=== PATIENT | female | born 1990 | race Caucasian/White ===

== ENCOUNTER 2019-01-11 18:46 | Emergency (ER) | payer MEDICAID ==
[~2019-01-11] VITALS: Ht 160 cm; Wt 48.1 kg
[2019-01-11 19:08] VITALS: BP 139/98
[2019-01-11 19:15] LABS: BASOPHILS % (AUTO) 0.9 % (0.0-2.0); EOSINOPHILS % (AUTO) 0.5 % (0.0-3.0); HEMATOCRIT 36.9 % (37.0-47.0); HEMOGLOBIN 12.6 G/DL (12.0-16.0); LYMPHOCYTES % (AUTO) 25.7 % (20.0-45.0); MEAN CORPUSCULAR VOLUME 97 FL (80-99); MONOCYTES % (AUTO) 11.4 % (1.0-10.0); NEUTROPHILS % (AUTO) 61.6 % (45.0-75.0); PLATELET COUNT 226 K/UL (150-450); RED BLOOD COUNT 3.81 M/UL (4.20-5.40); RED CELL DISTRIBUTION WIDTH 11.8 % (11.6-14.8); WHITE BLOOD COUNT 8.5 K/UL (4.8-10.8)
[2019-01-11 19:16] LABS: BILIRUBIN, URINE NEGATIVE (NEGATIVE); COLOR,URINE PALE YELLOW; GLUCOSE, URINE (UA) 4+ (NEGATIVE); KETONES,URINE NEGATIVE (NEGATIVE); LEUKOCYTE ESTERASE ,URINE NEGATIVE (NEGATIVE); NITRITE,URINE NEGATIVE (NEGATIVE); PH,URINE 6 (4.5-8.0); PROTEIN,URINE NEGATIVE (NEGATIVE); UROBILINOGEN,URINE NORMAL MG/DL (0.0-1.0)
[2019-01-11 19:17] LABS: APPEARANCE,URINE SLIGHTLY CLOUDY
[2019-01-11 19:26] LABS: ANION GAP 13 mmol/L (5-15); BLOOD UREA NITROGEN 8 mg/dL (7-18); CALCIUM 9.7 MG/DL (8.5-10.1); CARBON DIOXIDE 26 MMOL/L (21-32); CHLORIDE 100 MMOL/L (98-107); SODIUM 139 MMOL/L (136-145)
[2019-01-11 19:30] LABS: ALANINE AMINOTRANSFERASE 21 U/L (12-78); ALBUMIN 4.1 G/DL (3.4-5.0); ALBUMIN/GLOBULIN RATIO 1.2 (1.0-2.7); ALKALINE PHOSPHATASE 50 U/L (46-116); ASPARTATE AMINO TRANSFERASE 18 U/L (15-37); BILIRUBIN,TOTAL 0.4 MG/DL (0.2-1.0)
--- NOTE | 2019-01-11 19:41 | Emergency Room Report ---
History of Present Illness General Chief Complaint: Behavioral Complaint Source: EMS (Na Story) Present Illness HPI 28-year-old female brought in by EMS for suicidal ideations and possible suicide attempt. Patient states that she cut her left wrist and attempt to kill herself and began wrapping slightly she would "bleed out". 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 She states she is supposed to be taking gabapentin in the past has been on a variety of psych medications including Seroquel. She sees a doctor N[place] in [place] who manages her psychiatric disorder through the [facility]. The patient states that her family is in [place] and that she has an ex- in [place] who has guardianship over their son. She states that her daughter is property of the state now and that the patient has been homeless and has used a variety of drugs including marijuana, heroin, and methamphetamine. She states her last methamphetamine and heroin use was over a month ago. Patient states that she is very sad and depressed and continues to have thoughts of killing herself through a variety of methods such as slitting her wrists, overdosing on pills, or jumping off a bridge. (Na Story) Allergies: Coded Allergies: CLONAZEPAM (Verified Allergy, Unknown, 01/11/19) Patient History Last Menstrual Period: 12/16/18 Now: No - IUD : 4 Para: 2 Reviewed Nursing Documentation: PMH: Agreed; PSxH: Agreed (Na Story) Social History Narrative discharged from [facility]. 10 yo son and 2 yo daughter with their father in [place] (Peterson Hooker MD) Nursing Documentation-PMH History Of Psychiatric Problem: Yes - ANXIETY, DEPRESSION (Na Story) Review of Systems All Other Systems: negative except mentioned in HPI (Na Story) Physical Exam Vital Signs Date Time Temp Pulse Resp B/P (MAP) Pulse Ox O2 Delivery O2 Flow Rate FiO2 01/11/19 18:36 98.4 132 18 139/98 98 Room Air Sp02 EP Interpretation: reviewed, normal General Appearance: no apparent distress, alert, GCS 15, non-toxic Head: normocephalic, atraumatic Eyes: bilateral eye normal inspection, bilateral eye PERRL, bilateral eye EOMI ENT: hearing grossly normal, normal pharynx, no angioedema, normal voice Neck: full range of motion, supple/symm/no masses Respiratory: chest non-tender, lungs clear, normal breath sounds, speaking full sentences Cardiovascular #1: regular rate, rhythm, no edema Musculoskeletal: normal range of motion Neurologic: alert, oriented x3, responsive, 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, motor strength/tone normal, sensory intact, speech normal Psychiatric: memory normal, depressed affect, anxious, other - auditory haullucinations Skin: normal color, no rash, warm/dry, well hydrated, laceration - 3 linear lacerations ranging from 14cm and 12 cm left forearm (Na Story) Procedures Laceration/Wound Repair Laceration/Wound Repair : Consent: Verbal Wound Location: upper extremity Wound's Depth, Shape: superficial Wound Length (cm): 7 - 4+2+1 Wound Explored: clean Betadine Prep?: Yes Anesthesia: Lidocaine w/ Epi Volume Anesthetic (ccs): 10 Wound Debrided: none Wound Repaired With: sutures Suture Size/Type: 5:0 Layer Closure?: No Sterile Dressing Applied?: Yes Sling Applied?: No Patient Tolerated: Well Complications: None (Peterson Hooker MD) Medical Decision Making PA Attestation Dr. Peres is my supervising physician with whom patient management has been discussed with. Behavioral: Schizophrenia, Bipolar Disorder, Depression, PTSD (Na Story) Diagnostic Impression: Primary Impression: Unsuccessful suicide attempt Qualified Codes: X83.8XXA - Intentional self-harm by other specified means, initial encounter Additional Impressions: Major depression with psychotic features Laceration of left wrist Qualified Codes: S61.512A - Laceration without foreign body of left wrist, initial encounter Hypokalemia ER Course 28-year-old female presents for attempted suicide brought in by EMS. On exam she has 3 lacerations to her left forearm that are in the linear and runs perpendicular to the vessels in the arm. She is sad and tearful and states that she would like to harm herself by either overdosing on pills, "bleeding out ", or jumping off a building. States that she has had previous suicide attempts. Patient here is here asking for help and states that she was supposed to have a follow-up appointment with a psychiatrist in a week but knew that she would not be able to make it to them which is why she called 911 to help her. Her lacerations on her left forearm are very superficial do not require any intervention at this time. The patient had some hypokalemia and was given 40 mEq potassium and is otherwise medically cleared. The patient is placed on a 5150 hold and was given 100 mg of Seroquel as she has had this medication in the past. Report was given to Dr. Hooker who assumed care of the patient at the end of my shift. (Na Story) ER Course Please see above note. Patient examined by me. Sutures indicated. Will also order gabapentin. - cancelled as patient given Seroquel. She reports being hospitalized twice last week for psych reasons. Also needed potassium replacement. On meds for tachycardia also. Patient is medically cleared for psychiatric evaluation. Calling [facility] for possible transfer. Tachy on EKG 103. Will give LR bolus then hydration. Patient no longer tachycardic. Accepted at [facility]. Laboratory Tests Test 01/11/19 18:18 White Blood Count 8.5 K/UL (4.8-10.8) Red Blood Count 3.81 M/UL (4.20-5.40) L Hemoglobin 12.6 G/DL (12.0-16.0) Hematocrit 36.9 % (37.0-47.0) L Mean Corpuscular Volume 97 FL (80-99) Mean Corpuscular Hemoglobin 33.1 PG (27.0-31.0) H Mean Corpuscular Hemoglobin Concent 34.2 G/DL (32.0-36.0) Red Cell Distribution Width 11.8 % (11.6-14.8) Platelet Count 226 K/UL (150-450) Mean Platelet Volume 5.9 FL (6.5-10.1) L Neutrophils (%) (Auto) 61.6 % (45.0-75.0) Lymphocytes (%) (Auto) 25.7 % (20.0-45.0) Monocytes (%) (Auto) 11.4 % (1.0-10.0) H Eosinophils (%) (Auto) 0.5 % (0.0-3.0) Basophils (%) (Auto) 0.9 % (0.0-2.0) Urine Color Pale yellow Urine Appearance Slightly cloudy Urine pH 6 (4.5-8.0) Urine Specific Datil 1.005 (1.005-1.035) Urine Protein Negative (NEGATIVE) Urine Glucose (UA) 4+ (NEGATIVE) H Urine Ketones Negative (NEGATIVE) Urine Blood Negative (NEGATIVE) Urine Nitrite Negative (NEGATIVE) Urine Bilirubin Negative (NEGATIVE) Urine Urobilinogen Normal MG/DL (0.0-1.0) Urine Leukocyte Esterase Negative (NEGATIVE) Urine RBC 0 /HPF (0 - 2) Urine WBC 0-2 /HPF (0 - 2) Urine Squamous Epithelial Cells Few /LPF (NONE/OCC) Urine Bacteria Few /HPF (NONE) Urine HCG, Qualitative Negative (NEGATIVE) Sodium Level 139 MMOL/L (136-145) Potassium Level 3.0 MMOL/L (3.5-5.1) L Chloride Level 100 MMOL/L (98-107) Carbon Dioxide Level 26 MMOL/L (21-32) Anion Gap 13 mmol/L (5-15) Blood Urea Nitrogen 8 mg/dL (7-18) Creatinine 1.0 MG/DL (0.55-1.30) Estimate Glomerular Filtration Rate > 60 mL/min (>60) Glucose Level 99 MG/DL (74-106) Calcium Level 9.7 MG/DL (8.5-10.1) Total Bilirubin 0.4 MG/DL (0.2-1.0) Aspartate Amino Transferase (AST) 18 U/L (15-37) Alanine Aminotransferase (ALT) 21 U/L (12-78) Alkaline Phosphatase 50 U/L (46-116) Total Protein 7.4 G/DL (6.4-8.2) Albumin 4.1 G/DL (3.4-5.0) Globulin 3.3 g/dL Albumin/Globulin Ratio 1.2 (1.0-2.7) Urine Opiates Screen Negative (NEGATIVE) Urine Barbiturates Screen Negative (NEGATIVE) Phencyclidine (PCP) Screen Negative (NEGATIVE) Urine Amphetamines Screen Negative (NEGATIVE) Urine Benzodiazepines Screen Negative (NEGATIVE) Urine Cocaine Screen Negative (NEGATIVE) Urine Marijuana (THC) Screen Positive (NEGATIVE) H (Peterson Hooker MD) EKG Diagnostic Results Rate: tachycardiac Rhythm: NSR ST Segments: no acute changes (Peterson Hooker MD) Rhythm Strip Diag. Results EP Interpretation: yes Rhythm: no PVC's, no ectopy, other - ST (Peterson Hooker MD) Last Vital Signs Date Time Temp Pulse Resp B/P (MAP) Pulse Ox O2 Delivery O2 Flow Rate FiO2 01/11/19 19:08 98.4 132 18 139/98 98 Room Air (Na Story) Last Vital Signs Date Time Temp Pulse Resp B/P (MAP) Pulse Ox O2 Delivery O2 Flow Rate FiO2 01/12/19 04:15 98.1 92 18 124/82 98 Room Air Status: improved (Peterson Hooker MD) Disposition: XFER TO PSYCH HOSP/UNIT Condition: Serious - but stable for transfer Signed Out To: Dr. Hooker (Na Story) Na Story Jan 11, 2019 19:40 Petersno Hooker MD Jan 11, 2019 20:51
[2019-01-11] MEDS ORDERED: Lidocaine 1% 10mg/ml/Epi 0.005mg/ml 30ml vial INJ ONE (21:00)
[2019-01-11] MEDS ORDERED: Bacitracin Oint UD TOPIC ONE (21:00)
[2019-01-11 21:30] VITALS: BP 128/92
[2019-01-11] MEDS ORDERED: LR 1000ml 1,000 ML IV SCH (21:45)
[2019-01-11 21:46] LABS: APPEARANCE,URINE SLIGHTLY CLOUDY; BILIRUBIN, URINE NEGATIVE (NEGATIVE); GLUCOSE, URINE (UA) NEGATIVE (NEGATIVE); KETONES,URINE 4+ (NEGATIVE); LEUKOCYTE ESTERASE ,URINE 1+ (NEGATIVE); NITRITE,URINE NEGATIVE (NEGATIVE); PH,URINE 6 (4.5-8.0); PROTEIN,URINE 2+ (NEGATIVE); UROBILINOGEN,URINE 1 MG/DL (0.0-1.0)
[2019-01-11] MEDS: LR 1000ml 1,000 ML IV SCH ×2 (21:47→22:45)
[2019-01-11 21:49] LABS: COLOR,URINE YELLOW
[2019-01-12 01:25] VITALS: BP 125/84
[2019-01-12 04:15] VITALS: BP 124/82
== END 2019-01-12 04:15 ==
LOC: EDBD 18:46 → EMR 19:22
DX: S61.512A Laceration without foreign body of left wrist, initial encounter (principal); F32.3 Major depressive disorder, single episode, severe with psychotic features; E87.6 Hypokalemia; X78.9XXA Intentional self-harm by unspecified sharp object, initial encounter; Y92.9 Unspecified place or not applicable; R00.0 Tachycardia, unspecified
CPT/HCPCS: 12002; 36415; 80053; 80307; 81001; 81025; 85025; 87086; 93005; 96360; 96361; 99285; Z7502; J8499